=== PATIENT | female | born 1990 | race Caucasian/White ===

== ENCOUNTER 2017-08-07 08:31 | Day surgery (SDC) | payer BC ==
[2017-08-03 15:31] VITALS: BMI 43.4
[~2017-08-07 08:31] MED LIST: LACTATED RINGERS 1,000 ML IV SCH
[2017-08-07 09:00] VITALS: RESP 20; TEMP 98.4
[2017-08-07] MEDS ORDERED: PROPOFOL 10 MG/ML 20 ML VIAL IV ONE (09:13)
[2017-08-07] MEDS ORDERED: LIDOCAINE 1% INJ 10MG/ML (20 ML MDV) ONE (09:13)
--- NOTE | 2017-08-07 09:16 | P.GSHP ---
History of Present Illness H&P Date: 08/07/17 Chief Complaint: GI bleed Is a 27-year-old female referred from Dr. Szymanski. Patient resents today for colonoscopy. She's had issues with GI bleed. Patient also had recent complaints of upper quadrant pain. Her HIDA scan shows abnormal ejection fraction consistent with biliary dysfunction. Past Medical History Past Medical History: GERD/Reflux, Thyroid Disorder Additional Past Medical History / Comment(s): abd. pain, recent blood in stool History of Any Multi-Drug Resistant Organisms: None Reported Past Surgical History: Section Past Anesthesia/Blood Transfusion Reactions: No Reported Reaction Smoking Status: Never smoker - Past Family History Mother Family Medical History: Deep Vein Thrombosis (DVT) Medications and Allergies Home Medications Medication Instructions Recorded Confirmed Type ARIPiprazole [Abilify] 5 mg PO DAILY 08/03/17 08/03/17 History Levothyroxine Sodium [Levoxyl] 25 mcg PO DAILY 08/03/17 08/03/17 History Omeprazole [PriLOSEC] 40 mg PO DAILY 08/03/17 08/03/17 History Venlafaxine HCl ER [Effexor Xr] 150 mg PO DAILY 08/03/17 08/03/17 History buPROPion HCL [Wellbutrin XL] 300 mg PO DAILY 08/03/17 08/03/17 History l-Norgest/E.estradiol-E.estrad 1 each PO DAILY 08/03/17 08/03/17 History [Seasonique 0.15-0.03-0.01 Tab] Allergies Allergy/AdvReac Type Severity Reaction Status Date / Time No Known Allergies Allergy Verified 08/03/17 15:18 Surgical - Exam Vital Signs Temp Pulse Resp BP Pulse Ox 98.4 F 105 H 20 122/70 95 08/07/17 08:57 08/07/17 08:57 08/07/17 08:57 08/07/17 08:57 08/07/17 08:57 - General well developed, no distress - Eyes PERRL - ENT normal pinna - Neck no masses - Respiratory normal expansion - Cardiovascular Rhythm: regular - Abdomen Abdomen: soft, non tender Assessment and Plan Assessment: GI bleed. We'll perform colonoscopy.
--- NOTE | 2017-08-07 09:30 | P.OP ---
Date of Procedure: 08/07/17 Preoperative Diagnosis: GI bleed Postoperative Diagnosis: Rectal inflammation pathology pending Procedure(s) Performed: Colonoscopy Anesthesia: MAC Surgeon: Joshua Knox Pathology: other (rectum) Description of Procedure: The patient's placed on the endoscopy table lateral position. She received IV sedation. Digital rectal exam was performed which revealed no abnormalities. The flexible colonoscope was then placed patient anus and passed throughout the entire colon. The ileocecal valve was visualized. The cecum, ascending and transverse colon appeared normal. The descending colon appeared normal. The sigmoid colon appeared normal. The scope was then brought back the rectum and this appeared mildly inflamed. A biopsies was performed. The scope was then withdrawn through the anus and this appeared normal. Scope was withdrawn for patient.
[2017-08-07 10:01] VITALS: BP 138/84; PULSE 98
== END 2017-08-07 10:12 | disposition home or self-care (01) ==
LOC: ORWHC2ENDO 08:31
PROVIDERS: ATTEND Surgery
DX: K52.9 Noninfective gastroenteritis and colitis, unspecified (principal); K21.9 Gastro-esophageal reflux disease without esophagitis; E07.9 Disorder of thyroid, unspecified; F39 Unspecified mood [affective] disorder; Z79.3 Long term (current) use of hormonal contraceptives; Z79.899 Other long term (current) drug therapy
CPT/HCPCS: 45380; 81025; 88305; J2001; J2704

== ENCOUNTER → 2017-08-17 | Outpatient (CLI) | payer BC ==
--- NOTE | 2017-08-17 08:54 | CT ---
EXAMINATION TYPE: CT abdomen pelvis w con DATE OF EXAM: 08/17/2017 COMPARISON: NONE HISTORY: 27-year-old female with abdominal pain, hematochezia TECHNIQUE: Contiguous axial scanning of the abdomen and pelvis following administration of 100 ml Omn ipaque 300 IV contrast. Delayed images through the kidneys and coronal/sagittal reconstructions perf ormed. CT DLP: 1613.10 mGycm Automated exposure control for dose reduction was used. FINDINGS: Heart is normal size without pericardial effusion. Lung bases clear without pleural effusion. Liver is borderline enlarged measuring 17.7 cm craniocaudal. No focal liver lesion seen. No biliary d uctal dilatation. Portal venous system appears patent. Gallbladder, adrenal glands, kidneys, spleen, and pancreas appear within normal limits. Scattered nonenlarged mesenteric lymph nodes. Right lower quadrant mesenteric lymph nodes are borderl ine to mildly enlarged measuring up to 1 cm, axial image 48 for example. Normal appendix is visualized. Moderate stool in the right hemicolon. No pericolonic inflammatory change. No dilated small bowel, free fluid, or free air. Bladder partially distended. Uterus and ovaries are visualized. No abnormal fluid collection in the p wendy or pelvic lymphadenopathy is seen. There may be some mild perirectal fat stranding distally, ax ial image 71 and coronal image 73 with a prominent 8 mm left perirectal lymph node, coronal image 74. Bones: No osseous destructive process. IMPRESSION: 1. BORDERLINE ENLARGED LIVER. 2. NUMEROUS BORDERLINE TO MILDLY ENLARGED RIGHT LOWER QUADRANT MESENTERIC LYMPH NODES MEASURING UP TO 1 CM. CORRELATE FOR POSSIBLE MESENTERIC ADENITIS. 3. MILD PERIRECTAL FAT STRANDING AND ADJACENT PROMINENT 8 MM PERIRECTAL LYMPH NODE SUGGESTS SOME LOCA LIZED INFLAMMATION/COLITIS. 4. NORMAL APPENDIX.
== END | disposition home or self-care (01) ==
LOC: RADCTMAIN 06:32
PROVIDERS: ATTEND Family Medicine
DX: R16.0 Hepatomegaly, not elsewhere classified (principal); R59.0 Localized enlarged lymph nodes
CPT/HCPCS: 74177; Q9967

== ENCOUNTER 2017-09-04 07:46 | Day surgery (SDC) | payer BC ==
[2017-08-28 14:57] VITALS: BMI 46.3
[~2017-09-04 07:46] MED LIST changes: +DEXAMETHASONE SOD PHOSPHATE 10 MG/ML 1 ML VIAL IV ONE; +HEPARIN SODIUM,PORCINE 5,000 UNIT/ML 1 ML VIAL SQ ONE; +MIDAZOLAM 2 MG/2 ML VIAL IV PRN; +ONDANSETRON 4 MG/2 ML VIAL IVP ONE; +ceFAZolin IN SWFI 2 GM/20 ML SYRINGE IVP ONE
[2017-09-04 09:01] VITALS: RESP 16
[2017-09-04] MEDS ORDERED: LIDOCAINE 1% 20 ML VIAL (10MG/ML) FOR IV START INTRADERMA ONE (09:18)
[2017-09-04] MEDS ORDERED: SCOPOLAMINE 1.5MG/72HR PATCH TRANSDERM ONE (09:30)
--- NOTE | 2017-09-04 09:30 | P.GSHP ---
History of Present Illness H&P Date: 09/04/17 Chief Complaint: Right upper quadrant pain Assessment 19-year-old female referred from Dr. Szymanski. Patient's had complaints of right upper quadrant pain. Her recent HIDA scan shows abnormal ejection fraction. She presents for laparoscopic cholecystectomy for chronic cholecystitis. Past Medical History Past Medical History: No Reported History, Thyroid Disorder Additional Past Medical History / Comment(s): MIGRAINE HEADACHE History of Any Multi-Drug Resistant Organisms: None Reported Past Surgical History: No Surgical Hx Reported Additional Past Surgical History / Comment(s): COLONOSCOPY Past Anesthesia/Blood Transfusion Reactions: No Reported Reaction Smoking Status: Never smoker - Past Family History Mother Family Medical History: Deep Vein Thrombosis (DVT) Medications and Allergies Home Medications Medication Instructions Recorded Confirmed Type ARIPiprazole [Abilify] 5 mg PO 1500 08/03/17 09/04/17 History Levothyroxine Sodium [Levoxyl] 25 mcg PO 0800 08/03/17 09/04/17 History Omeprazole [PriLOSEC] 40 mg PO 1500 08/03/17 09/04/17 History Venlafaxine HCl ER [Effexor Xr] 150 mg PO 1500 08/03/17 09/04/17 History buPROPion HCL [Wellbutrin XL] 300 mg PO 1500 08/03/17 09/04/17 History l-Norgest/E.estradiol-E.estrad 1 each PO 1500 08/03/17 09/04/17 History [Seasonique 0.15-0.03-0.01 Tab] Allergies Allergy/AdvReac Type Severity Reaction Status Date / Time No Known Allergies Allergy Verified 09/04/17 09:23 Surgical - Exam Vital Signs Temp Pulse Resp BP Pulse Ox 98.2 F 108 H 16 122/72 99 09/04/17 08:50 09/04/17 08:50 09/04/17 08:50 09/04/17 08:50 09/04/17 08:50 - General well developed, no distress - Eyes PERRL - ENT normal pinna - Neck no masses - Respiratory normal expansion - Cardiovascular Rhythm: regular - Abdomen Abdomen: soft, non tender Assessment and Plan Assessment: Chronic cholecystitis. We'll perform laparoscopic cholecystectomy.
[2017-09-04] MEDS ORDERED: MIDAZOLAM 2 MG/2 ML VIAL ONE (09:49)
[2017-09-04] MEDS ORDERED: ROCURONIUM BROMIDE 10 MG/ML 10 ML VIAL IV ONE (09:49)
[2017-09-04] MEDS ORDERED: LIDOCAINE 1% INJ 10MG/ML (20 ML MDV) ONE (09:49)
[2017-09-04] MEDS ORDERED: NEOSTIGMINE 1 MG/ML 10 ML VIAL ONE (09:49)
[2017-09-04] MEDS ORDERED: fentaNYL (PF) 50 MCG/ML 2 ML AMP ONE (09:49)
[2017-09-04] MEDS ORDERED: PROPOFOL 10 MG/ML 20 ML VIAL IV ONE (09:49)
[2017-09-04] MEDS ORDERED: SUCCINYLCHOLINE CHLORIDE 100 MG/5 ML SYR IV ONE (09:49)
[2017-09-04] MEDS ORDERED: GLYCOPYRROLATE 0.2 MG/ML 2 ML VIAL ONE (09:49)
[2017-09-04] MEDS ORDERED: BUPIVACAINE-EPI 0.5%-1:200,000 10 ML VIAL SQ ONE ×2 (10:06→10:13)
--- NOTE | 2017-09-04 10:42 | P.OP ---
Date of Procedure: 09/04/17 Preoperative Diagnosis: cholecystitis Postoperative Diagnosis: cholecystitis Procedure(s) Performed: laparoscopic cholecystectomy Anesthesia: MARIOLA Surgeon: Joshua Knox Estimated Blood Loss (ml): 5 Pathology: other (gallbladder) Condition: stable Disposition: PACU Description of Procedure: The patient was placed on the operating table. The patient received a general endotracheal tube anesthesia. The patients abdomen was prepped and draped in the usual sterile fashion. Through an infraumbilical stab incision, the fascia of the anterior abdominal wall was grasped with a pair of Kochers and then the Veress needle was placed in the peritoneal cavity. Position of the Veress needle was confirmed with positive drop test. The abdomen was then insufflated. After adequate insufflation, the 10 mm trocar was placed in the peritoneal cavity. Following this the laparoscope was placed in the peritoneal cavity. The patient was placed in the head-up, right side up position and then a 5 mm trocar was placed in the right lateral and right subcostal position under direct visualization. A 8 mm trocar was placed in the epigastric position. The gallbladder was grasped in the fundus and infundibulum. Traction on the gallbladder was placed in the lateral and the cephalad positions. The triangle of Calot was visualized.. The cystic duct was bluntly dissected until the union of the cystic duct and common bile duct was seen. The cystic duct was then divided and sealed with the Harmonic scissors. A PDS Endoloop was then placed throughout the cystic duct stump. The cystic artery divided and sealed with the Harmonic scissors. The gallbladder was then removed from the liver bed using Harmonic scissors. The gallbladder was then extracted through the epigastric port site. Operative field was checked for any bleeding spots and Harmonic scissors was used to coagulate the liver bed. The abdomen was irrigated. The trocars were removed. The skin was closed using interrupted 3-0 Vicryl suture. Dermabond dressing were applied. The patient tolerated the procedure well.
[2017-09-04] MEDS: HYDROmorphone 0.5 MG/0.5 ML SYRINGE IVP PRN ×4 (11:06→11:24)
[2017-09-04 11:10] VITALS: TEMP 98.1
[2017-09-04] MEDS ORDERED: LACTATED RINGERS 1,000 ML IV ONE (11:46)
[2017-09-04] MEDS ORDERED: KETOROLAC 30 MG/ML 1 ML VIAL IVP ONE (11:48)
[2017-09-04] MEDS ORDERED: HYDROcodone/APAP 7.5-325MG 1 EACH TAB PO ONE (12:24)
[2017-09-04 13:00] VITALS: BP 128/79; PULSE 105
== END 2017-09-04 14:10 | disposition home or self-care (01) ==
LOC: OR 07:46
PROVIDERS: ATTEND Surgery
DX: K81.1 Chronic cholecystitis (principal); E07.9 Disorder of thyroid, unspecified; Z79.899 Other long term (current) drug therapy; Z79.3 Long term (current) use of hormonal contraceptives
CPT/HCPCS: 81025; 88304; 47562; J2250; J1644; J1100; J2710; J0690; J2405; J2001; J3010; J1885; J0330; J2704; J1170